=== PATIENT | male | born 1965 | race Caucasian/White ===

== ENCOUNTER 2021-02-02 18:14 | Emergency (ER) | payer OTHER ==
[~2021-02-02 18:14] MED LIST: AUGMENTIN XR 11 EACH PO; BACTRIM DS TAB1 EACH PO; METFORMIN HCL500 MG PO; NORCO 7.5-3251 EACH PO; PRINIVIL10 MG PO; VIT D3
[2021-02-02 19:37] LABS: BASOPHIL 0.8 % (0-2); EOSINOPHIL 2.8 % (0-5); HCT 40.5 % (42.0-52.0); HGB 14.5 g/dl (13.2-18.0); LYMPHOCYTE 30.4 % (15-48); MCH 31.3 pg (25.0-31.0); MCHC 35.8 g/dL (32.0-36.0); MCV 87.5 fL (78.0-100.0); MPV 9.4 fL (6.0-9.5); NEUTROPHIL 57.9 % (41-80); NRBC 0; PLT 208 K/uL (150-400); RBC 4.63 M/uL (4.70-6.00); RDW 12.5 % (11.5-14.0); WBC 7.9 K/uL (4.0-10.5)
[2021-02-02 19:56] LABS: ALBUMIN 3.7 g/dL (3.4-5.0); BILIRUBIN - TOTAL 0.3 mg/dL (0.2-1.0); BUN/CREAT RATIO (CALC) 16.3 RATIO; CREATININE 0.92 mg/dL (0.67-1.17); GLOBULIN (CALCULATION) 3.8 g/dL; POTASSIUM 4.1 mmol/L (3.5-5.1); TOTAL PROTEIN 7.5 g/dL (6.4-8.2)
== END 2021-02-02 22:18 | disposition home or self-care (01) ==
LOC: FER 18:14
PROVIDERS: Emergency Medicine
DX: M25.511 Pain in right shoulder (principal); M25.512 Pain in left shoulder; M25.522 Pain in left elbow; M25.521 Pain in right elbow
CPT/HCPCS: 36415; 71045; 80053; 82550; 85025

== ENCOUNTER 2021-09-07 13:06 | Emergency (ER) | payer OTHER ==
[~2021-09-07] VITALS: Ht 172.7 cm; Wt 117.9 kg
[2021-09-07 14:04] LABS: BASOPHIL 0.6 % (0-2); EOSINOPHIL 1.1 % (0-5); HCT 38.5 % (42.0-52.0); HGB 13.5 g/dl (13.2-18.0); LYMPHOCYTE 24.1 % (15-48); MCH 32.2 pg (25.0-31.0); MCHC 35.1 g/dL (32.0-36.0); MCV 91.9 fL (78.0-100.0); MONOCYTE 9.8 % (0-12); MPV 9.9 fL (6.0-9.5); NEUTROPHIL 64.1 % (41-80); NRBC 0; PLT 159 K/uL (150-400); RBC 4.19 M/uL (4.70-6.00); RDW 13.1 % (11.5-14.0); WBC 6.5 K/uL (4.0-10.5)
[2021-09-07 14:34] LABS: PRO-BNP 733 pg/mL (<125)
[2021-09-07 14:35] LABS: ALBUMIN 3.2 g/dL (3.4-5.0); BILIRUBIN - TOTAL 0.6 mg/dL (0.2-1.0); CREATININE 0.91 mg/dL (0.67-1.17); GLOBULIN (CALCULATION) 3.8 g/dL; POTASSIUM 4.5 mmol/L (3.5-5.1)
[2021-09-07 16:46] LABS: INR 1.1 (0.9-1.2); PROTHROMBIN TIME 13.6 SECONDS (11.8-13.4); PTT 27.5 SECONDS (24.4-34.7)
== END 2021-09-07 21:30 | disposition other institution (70) ==
LOC: FER 13:06
PROVIDERS: Internal Medicine
DX: J96.00 Acute respiratory failure, unspecified whether with hypoxia or hypercapnia (principal); I26.92 Saddle embolus of pulmonary artery without acute cor pulmonale; I25.10 Atherosclerotic heart disease of native coronary artery without angina pectoris; E11.9 Type 2 diabetes mellitus without complications; I10 Essential (primary) hypertension; Z20.822 Contact with and (suspected) exposure to COVID-19
CPT/HCPCS: 36415; 36600; 71045; 71275; 80053; 82803; 83605; 83880; 84145; 84484; 85025; 85610; 85730; 87040; 93005; J1644; Q9967; U0002

== ENCOUNTER 2022-01-28 09:47 | Day surgery (SDCO) | payer OTHER ==
[~2022-01-28] VITALS: Ht 172.7 cm; Wt 111.2 kg
[2022-01-28 10:37] LABS: BASOPHIL 0.4 % (0-2); EOSINOPHIL 1.3 % (0-5); HCT 35.9 % (42.0-52.0); HGB 12.3 g/dl (13.2-18.0); LYMPHOCYTE 19.9 % (15-48); MCH 32.3 pg (25.0-31.0); MCHC 34.3 g/dL (32.0-36.0); MCV 94.2 fL (78.0-100.0); MPV 9.6 fL (6.0-9.5); NEUTROPHIL 62.1 % (41-80); NRBC 0; PLT 206 K/uL (150-400); RBC 3.81 M/uL (4.70-6.00); RDW 12.1 % (11.5-14.0); WBC 6.9 K/uL (4.0-10.5)
[2022-01-28 10:57] LABS: ALBUMIN 3.1 g/dL (3.4-5.0); BILIRUBIN - TOTAL 0.4 mg/dL (0.2-1.0); BUN/CREAT RATIO (CALC) 15.2 RATIO; CREATININE 0.92 mg/dL (0.67-1.17); GLOBULIN (CALCULATION) 4.4 g/dL; POTASSIUM 4.2 mmol/L (3.5-5.1); TOTAL PROTEIN 7.5 g/dL (6.4-8.2)
[2022-01-28 11:26] LABS: CORONAVIRUS 2019 SARS-COV-2 NEGATIVE (NEGATIVE); INFLUENZA A NAA NEGATIVE (NEGATIVE)
[2022-01-28 13:01] LABS: INR 1.09 (0.9-1.2); PROTHROMBIN TIME 13.5 SECONDS (11.8-13.4); PTT 28.1 SECONDS (24.4-34.7)
[2022-01-28 15:47] LABS: RETICULOCYTE COUNT 1.4 % (1.0-2.0)
[2022-01-28 16:07] LABS: C-REACTIVE PROTEIN >18.00 mg/dL (<=0.90); CPK 49 U/L (39-308)
[2022-01-28] MEDS ORDERED: NORVASC5 MG PO ×2 (18:25→22:49)
[2022-01-28] MEDS ORDERED: CELEXA20 MG PO ×2 (18:26→22:46)
[2022-01-28] MEDS ORDERED: CELEXA10 MG PO (18:26)
[2022-01-28] MEDS ORDERED: GLIPIZIDE ER10 MG PO (18:27)
[2022-01-28] MEDS ORDERED: LANTUS **100 UNITS/ IJ (18:29)
[2022-01-28] MEDS ORDERED: LOPRESSOR25 MG PO ×2 (18:31→22:48)
[2022-01-28] MEDS ORDERED: COZAAR100 MG PO (18:31)
[2022-01-28] MEDS ORDERED: LANTUS SOL100 UNIT/1 IJ (18:31)
[2022-01-28] MEDS ORDERED: SYNTHROID112 MCG PO (22:11)
[2022-01-28] MEDS ORDERED: FEOSOL325 MG PO (22:13)
[2022-01-28] MEDS ORDERED: BUMEX1 MG PO (22:15)
[2022-01-28] MEDS ORDERED: ACID REDUCER20 MG PO (22:17)
[2022-01-28] MEDS ORDERED: LIPITOR20 MG PO (22:18)
[2022-01-28] MEDS ORDERED: ELIQUIS5 MG PO ×2 (22:44→22:45)
[2022-01-28] MEDS ORDERED: GLUCOTROL10 MG PO (22:46)
--- NOTE | 2022-01-28 23:37 | NUR ---
DAUGHTER, ANGELICA [phone]; OK TO UPDATE DAUGHTER PER PT.
--- NOTE | 2022-01-29 09:17 | NUR ---
01/29/22 Mr. Elmore lives in a trailer without electricity. He reports to need $700.00 to have the utilities ran to his place. He heats with propaine and uses battery operated ligths. He has water. Mr. Elmore is not interested piblic housing. He states that his place is paid in full. - Mr. Elmore was denied SSD. He has an box turner assisting with an appeal. His 2 daughters are assisting financially. He has applied for [employer]. There has been difficulty with the application because he said he did not have electric bills. 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 - Mr. Elmore was provided with the following resources: [employer], [employer], [facility], [facility], and [employer] [facility] [employer]. He was educated on the documentation needed for the SSD application process.
[2022-01-29] MEDS ORDERED: LOVENOX120 MG/0.8 SC ×2 (11:07→11:25)
[2022-01-29] MEDS ORDERED: VIBRAMYCIN100 MG PO (11:09)
== END 2022-01-29 13:00 | disposition home or self-care (01) ==
LOC: FER 09:47 → FMS 13:52
PROVIDERS: Internal Medicine; Nurse Practitioner Acute Care; ADMIT Family Medicine
DX: I26.99 Other pulmonary embolism without acute cor pulmonale (principal); J20.9 Acute bronchitis, unspecified; J44.0 Chronic obstructive pulmonary disease with (acute) lower respiratory infection; I13.0 Hypertensive heart and chronic kidney disease with heart failure and stage 1 through stage 4 chronic kidney disease, or unspecified chronic kidney disease; E11.22 Type 2 diabetes mellitus with diabetic chronic kidney disease; N18.2 Chronic kidney disease, stage 2 (mild); I50.9 Heart failure, unspecified; E11.65 Type 2 diabetes mellitus with hyperglycemia; M79.10 Myalgia, unspecified site; I82.403 Acute embolism and thrombosis of unspecified deep veins of lower extremity, bilateral; D64.9 Anemia, unspecified; Z20.822 Contact with and (suspected) exposure to COVID-19; Z79.01 Long term (current) use of anticoagulants
CPT/HCPCS: 36415; 71045; 71275; 80053; 82550; 82728; 83036; 83540; 83880; 84145; 84484; 85025; 85610; 85730; 86140; 87070; 87205; 93005; 94010; 94640; 94664; G0378; J0456; J1650; J1815; J7050; Q9967; U0002

== ENCOUNTER → 2022-03-19 | Day surgery (SDC) | payer OTHER ==
[~2022-03-19] VITALS: Ht 172.7 cm; Wt 111.1 kg
[~2022-03-19] MED LIST changes: +ACID REDUCER20 MG PO; +BUMEX1 MG PO; +CARAFATE S500 MG/TSP PO; +CELEXA10 MG PO; +CELEXA20 MG PO; +CLONIDINE1 EACH TD; +COZAAR100 MG PO; +ELIQUIS5 MG PO; +FEOSOL325 MG PO; +GLIPIZIDE ER10 MG PO; +GLUCOTROL10 MG PO; +LANTUS **100 UNITS/ IJ; +LANTUS SOL100 UNIT/1 IJ; +LIPITOR20 MG PO; +LOPRESSOR25 MG PO; +LOVENOX120 MG/0.8 SC; +MAGNESIUM OXID400 M1 PO; +NORVASC5 MG PO; +OMEPRAZOLE40 MG PO; +PRILOSEC20 MG PO; +SYNTHROID112 MCG PO; +VENTOLIN HFA IN18 GM INH; +VIBRAMYCIN100 MG PO; +VITAMIN D3125 MC1 PO
== END | disposition home or self-care (01) ==
LOC: FAS 07:23
DX: K29.50 Unspecified chronic gastritis without bleeding (principal); B96.81 Helicobacter pylori [H. pylori] as the cause of diseases classified elsewhere; K83.1 Obstruction of bile duct; K21.9 Gastro-esophageal reflux disease without esophagitis; E11.36 Type 2 diabetes mellitus with diabetic cataract; H26.9 Unspecified cataract; I10 Essential (primary) hypertension; E66.9 Obesity, unspecified; Z68.38 Body mass index [BMI] 38.0-38.9, adult; Z87.891 Personal history of nicotine dependence; Z20.822 Contact with and (suspected) exposure to COVID-19
CPT/HCPCS: 82962; J2250; J2704; J7120; U0002

== ENCOUNTER 2022-03-24 11:50 | Emergency (ER) | payer OTHER ==
[~2022-03-24] VITALS: Ht 172.7 cm; Wt 111.1 kg
[2022-03-24 13:21] LABS: BASOPHIL 0.7 % (0-2); EOSINOPHIL 2.9 % (0-5); HCT 37.5 % (42.0-52.0); HGB 13.2 g/dl (13.2-18.0); LYMPHOCYTE 24.8 % (15-48); MCH 32.5 pg (25.0-31.0); MCHC 35.2 g/dL (32.0-36.0); MCV 92.4 fL (78.0-100.0); MONOCYTE 9.3 % (0-12); MPV 9.8 fL (6.0-9.5); NEUTROPHIL 61.8 % (41-80); NRBC 0; PLT 226 K/uL (150-400); RBC 4.06 M/uL (4.70-6.00); RDW 12.3 % (11.5-14.0); WBC 6.1 K/uL (4.0-10.5)
[2022-03-24 13:24] LABS: INR 1.04 (0.9-1.2); PTT 30.5 SECONDS (24.4-34.7)
[2022-03-24 13:32] LABS: ALBUMIN 3.7 g/dL (3.4-5.0); BILIRUBIN - TOTAL 0.3 mg/dL (0.2-1.0); BUN/CREAT RATIO (CALC) 23.1 RATIO; CREATININE 0.78 mg/dL (0.67-1.17); GLOBULIN (CALCULATION) 3.4 g/dL; TOTAL PROTEIN 7.1 g/dL (6.4-8.2)
== END 2022-03-24 14:50 | disposition home or self-care (01) ==
LOC: FER 11:50
PROVIDERS: Emergency Medicine
DX: I10 Essential (primary) hypertension (principal); E11.65 Type 2 diabetes mellitus with hyperglycemia; Z28.310 Unvaccinated for COVID-19
CPT/HCPCS: 36415; 80053; 84484; 85025; 85610; 85730; 93005